=== PATIENT | female | born 1980 | race Hispanic/Latino ===

== ENCOUNTER 2019-04-19 09:43 | Inpatient (IN) | payer OTHER ==
[~2019-04-19] VITALS: Ht 160 cm; Wt 123.4 kg
--- NOTE | 2019-04-19 09:30 | NUR ---
HANDOUTS ON GDM, DRAWING UP MIXED INSULIN AND ADMINISTERING INSULIN REVIEWED WITH PATIENT AT BEDSIDE. QUESTIONS INVITED AND ANSWERED. DEMONSTRATION GIVEN AND PATIENT WAS ABLE TO GIVE GUIDED RETURN DEMONSTRATION.
[2019-04-19 10:30] VITALS: BP 127/73
[2019-04-19 14:25] LABS: HEMOGLOBIN A1C 7.4 % (4.0-6.0)
[2019-04-19] MEDS ORDERED: PNV1TABL17 PO (14:51)
[2019-04-19] MEDS ORDERED: INSULIN NPH 100 UNIT/ML 3ML SQ SCH (16:30)
[2019-04-19] MEDS ORDERED: INSULIN HUMULIN R 100 UNIT/ML 3ML SQ SCH (16:30)
[2019-04-19 16:40] VITALS: BP 117/74
--- NOTE | 2019-04-19 16:47 | NUR ---
INSULIN REG 10 UNITS; INSULIN NPH 10 UNITS ADMINISTERED TO RIGHT ABD. DEMONSTRATION GIVEN. SATISFACTORY PATIENT TEACH BACK UTILIZED.
[2019-04-19 19:35] VITALS: BP 106/83
[2019-04-19 23:43] VITALS: BP 107/79
[2019-04-20 04:09] VITALS: BP 100/61
--- NOTE | 2019-04-20 05:43 | NUR ---
STATUS RESTED THIS SHIFT W/O ANY CONCERNS, ENCOURAGED TO DRINK WATER Addendum: 04/20/19 at 0545 by TEJAL BRYANT LVN Amended: Links added.
[2019-04-20 07:19] VITALS: BP 105/54
[2019-04-20] MEDS ORDERED: INSULIN NPH 100 UNIT/ML 3ML SQ SCH ×2 (07:30→16:30)
[2019-04-20] MEDS ORDERED: INSULIN HUMULIN R 100 UNIT/ML 3ML SQ SCH ×2 (07:30→16:30)
[2019-04-20 11:08] VITALS: BP 113/68
--- NOTE | 2019-04-20 11:44 | NUR ---
RD NOTIFICATION DIET: 75GMCCD. PO INTAKE 100% AND HAS GOOD APPETITE. MONITOR LABS - A1C 7.4, EAG 166. MEDS REVIEWED. SKIN IS INTACT. NO COMPLAINTS OF N/V/C/D AT THIS TIME. RD PROVIDED GESTATIONAL DIABETES NUTRITION EDUCATION EDUCATION MATERIALS WERE PROVIDED Addendum: 04/20/19 at [address] Amended: Links added.
--- NOTE | 2019-04-20 11:46 | NUR ---
NUTRITION EDUCATION COMPLETED DX GESTATIONAL DIABETES. PT IS NOT FAMILIAR WITH DIABETES DIET AND NUTRITION RECOMMENDATIONS/ FOODS TO AVOID. RD PROVIDED DIAGNOSIS INFORMATION, MEAL PLAN/ MEAL TIMES/ FOOD OPTIONS/ PORTION SIZES AND OTHER SPECIFIC NUTRITION RECOMMENDATIONS. CARBOHYDRATE COUNTING DISCUSSED WITH PT. PT ASKED QUESTIONS, RD ANSWERED AND PT VERBALIZED UNDERSTANDING. EDUCATION MATERIALS WERE PROVIDED. LASTLY, BG AND A1C GOALS WERE ESTABLISHED WITH THE PT. Addendum: 04/20/19 at [address] Amended: Links added.
--- NOTE | 2019-04-20 13:08 | NUR ---
CHART REVIEWED [facility] GENERATED ORDER OBTAINED
--- NOTE | 2019-04-20 13:22 | NUR ---
PATIENT AMBULATING IN HALLWAY. NO C/O DIZZINESS REPORTED. STEADY GAIT NOTED.
[2019-04-20 16:38] VITALS: BP 107/80
[2019-04-20 19:25] VITALS: BP 108/83
--- NOTE | 2019-04-20 20:20 | NUR ---
DIET PATIENT ON ADA 1999 DIET Addendum: 04/21/19 at 0140 by CHRISTIANO JAMES RN RN Amended: Links added.
[2019-04-20 23:51] VITALS: BP 106/53
[2019-04-21 03:45] VITALS: BP 98/68
[2019-04-21] MEDS ORDERED: INSULIN HUMULIN R 100 UNIT/ML 3ML SQ SCH (07:30)
[2019-04-21] MEDS ORDERED: INSULIN NPH 100 UNIT/ML 3ML SQ SCH (07:30)
[2019-04-21 07:31] VITALS: BP 110/67
--- NOTE | 2019-04-21 10:53 | NUR ---
Initial Assessment Patient lives with mother, brother and 4 year old son. She has no home services. DME: glucometer (no insulin). Patient is independent and drives. She is presently not employed. DCP is home. Addendum: 04/21/19 at 1055 by ALL RODGERS SS Amended: Links added.
--- NOTE | 2019-04-21 11:20 | NUR ---
DISCHARGE INSTRUCTIONS READ AND EXPLAINED TO PATIENT. HANDOUTS REVIEWED WITH PATIENT. PATIENT ABLE TO VERBALIZE HOW TO DRAW UP AND ADMINISTER INSULIN.
--- NOTE | 2019-04-21 11:30 | NUR ---
DISCHARGE PATIENT LEFT UNIT VIA WHEELCHAIR WITH BELONGINGS IN HAND. PERSONAL VEHICLE USED FOR TRANSPORTATION. NO COMPLAINTS OR CONCERNS ADDRESSED FROM PATIENT ON DISCHARGE.
== END 2019-04-21 11:30 | disposition home or self-care (01) | DRG 833 ==
LOC: WSH 09:43 → OBSVTOIN 09:43 → WSH 04-20 11:31
PROVIDERS: ADMIT Obstetrics & Gynecology; ATTEND Obstetrics & Gynecology
DX: O24.419 Gestational diabetes mellitus in pregnancy, unspecified control (principal); Z3A.15 15 weeks gestation of pregnancy
CPT/HCPCS: 82948; 83036; G0378; J1815